=== PATIENT | female | born 1960 | race Asian ===

== ENCOUNTER 2021-05-12 17:59 | Inpatient (IN) | payer MEDICAID, OTHER ==
[~2021-05-12] VITALS: Ht 162.6 cm; Wt 94.8 kg
[2021-05-12] MEDS ORDERED: SODIUM CHLORIDE 0.9% 1,000 ML IV ONE (19:15)
[2021-05-12] MEDS ORDERED: VANCOMYCIN 1 G PREMIX 200 ML IV ONE (20:30)
[2021-05-12] MEDS ORDERED: PIPERACILLIN/TAZ 3.375G PREMIX 50 ML IV ONE (20:30)
[2021-05-12 22:02] LABS: BASOPHILS % 0.2 % (0.0-2.0); HEMATOCRIT. 26.8 % (36.0-48.0); HEMOGLOBIN. 8.9 g/dL (12.0-16.0); LYMPHOCYTES % 15.9 % (20.0-50.0); MEAN CORPUSCULAR HEMOGLOBIN 35.8 pg (28.0-32.0); MEAN CORPUSCULAR VOLUME 107.8 fL (81.0-99.0); MEAN PLATELET VOLUME 10.1 fl (7.4-10.4); NEUTROPHILS % 74.9 % (40.0-76.0); PLATELET 97 x1000/uL (130-400); RED BLOOD CELL COUNT 2.49 mill/uL (4.2-5.4); RED CELL DISTRIBUTION WIDTH 21.9 % (11.6-14.6)
[2021-05-12 23:13] LABS: CHLORIDE 101 mEq/L (98-107)
[2021-05-13] MEDS ORDERED: SODIUM CHLORIDE 0.9% 500 ML IV ONE (00:15)
[2021-05-13] MEDS ORDERED: SODIUM BICARBONATE 8.4% 1 MEQ/ML 50ML SYR IV ONE (00:15)
[2021-05-13] MEDS ORDERED: SODIUM BICARBONATE 8.4% 1 MEQ/ML 50ML SYR IV NR (01:45)
[2021-05-13] MEDS ORDERED: SODIUM POLYSTYRENE SULFONATE 15 G/60 ML BOT PO NR ×2 (04:15→21:00)
[2021-05-13 06:19] LABS: HEMATOCRIT. 23.5 % (36.0-48.0); HEMOGLOBIN. 7.8 g/dL (12.0-16.0); MEAN CORPUSCULAR HEMOGLOBIN 34.9 pg (28.0-32.0); MEAN CORPUSCULAR VOLUME 104.8 fL (81.0-99.0); MEAN PLATELET VOLUME 9.2 fl (7.4-10.4); PLATELET 57 x1000/uL (130-400); RED BLOOD CELL COUNT 2.25 mill/uL (4.2-5.4); RED CELL DISTRIBUTION WIDTH 19.4 % (11.6-14.6)
[2021-05-13 07:07] LABS: CHLORIDE 101 mEq/L (98-107)
[2021-05-13 07:22] LABS: PLATELET ESTIMATE DECREASED
[2021-05-13] MEDS: SODIUM CHLORIDE 0.9% 1,000 ML IV SCH ×2 (11:00→20:40)
[2021-05-13] MEDS: MIDODRINE HCL 5MG TABLET PO SCH ×2 (11:00→16:06)
[2021-05-13 11:18] LABS: BG BASE EXCESS -6.7 mmol/L (-2.0-2.0); BG CARBOXYHEMOGLOBIN 0.1 % (0.5-1.5); BG DEOXYHEMOGLOBIN 6.2 % (0.0-5.0); BG HCO3 ACT 18.5 mmol/L (22.0-26.0); BG METHEMOGLOBIN 0.3 % (0.0-1.5); BG OXYGEN SATURATION 93.8 % (92.0-98.5); BG OXYHEMOGLOBIN 93.4 % (94.0-97.0); BG PCO2 35.3 mmHg (35.0-45.0); BG PH 7.337 (7.350-7.450); BG PO2 80.3 mmHg (75.0-100.0); BG SAMPLE SITE RIGHT RADIAL; BG TOTAL HEMOGLOBIN 8.5 g/dL (12.0-18.0); BG VENT MODE NASAL CANNULA
[2021-05-13] MEDS ORDERED: ACETAMINOPHEN 325MG TABLET PO PRN (12:00)
[2021-05-13] MEDS ORDERED: MORPHINE SULFATE 2 MG/ML CPJ (NOT FOR IM USE) IV PRN (12:00)
[2021-05-13] MEDS ORDERED: DEXTROSE 50% WATER 50ML SYRINGE IV PRN (12:00)
[2021-05-13] MEDS ORDERED: LORAZEPAM 2MG/ML CPJ IV PRN (12:00)
[2021-05-13] MEDS ORDERED: ACETAMINOPHEN 650MG SUPP PR PRN (12:00)
[2021-05-13] MEDS: BLOOD SUGAR DIAGNOSTIC STRIP TEST SCH ×3 (13:00→21:16)
[2021-05-13] MEDS: INSULIN LISPRO 100 UNITS/ML SUBCUT SCH ×3 (13:20→21:21)
[2021-05-13 13:30] VITALS: BP 111/72
[2021-05-13 13:36] LABS: TOTAL IRON BINDING CAPACITY 174 ug/dL (250-450)
[2021-05-13 13:39] LABS: CREATINE KINASE 22 IU/L (26-192)
[2021-05-13] MEDS ORDERED: PIPERACILLIN/TAZOBACTAM 3.375 G in DEXTROSE 5% WATER 50 ML IV SCH (14:00)
[2021-05-13] MEDS ORDERED: METO-396 MT (15:27)
[2021-05-13] MEDS ORDERED: FURO20TA4 PO (15:27)
[2021-05-13] MEDS ORDERED: LEVO250T58 PO (15:27)
[2021-05-13] MEDS ORDERED: PANT40TA51 PO (15:27)
[2021-05-13] MEDS ORDERED: CLIN-116 PO (15:27)
[2021-05-13] MEDS ORDERED: DOCU50LI25 PO (15:27)
[2021-05-13 16:00] VITALS: BP 132/67
[2021-05-13 17:21] LABS: VITAMIN B12 SERUM 404 pg/mL (211-911)
[2021-05-13] MEDS ORDERED: DILT120T2 PO (17:37)
[2021-05-13] MEDS ORDERED: ATOR10TA69 PO (17:37)
[2021-05-13] MEDS ORDERED: ACYC200C31 PO (17:37)
[2021-05-13] MEDS ORDERED: TRAM50TA3 MT (17:37)
[2021-05-13] MEDS ORDERED: GABA-532 PO (17:37)
[2021-05-13] MEDS ORDERED: ASPI-1497 PO (17:37)
[2021-05-13] MEDS ORDERED: LENA25CA PO (17:37)
[2021-05-13] MEDS ORDERED: ONDA4TAB11 PO (17:37)
[2021-05-13] MEDS ORDERED: CHOL400D7 PO (17:37)
[2021-05-13] MEDS ORDERED: DEXA4TAB PO (17:37)
[2021-05-13] MEDS ORDERED: OMEP40CA20 MT (17:37)
[2021-05-13 18:06] LABS: HEPATITIS B SURFACE ANTIGEN NEGATIVE
[2021-05-13] MEDS: IPRATROPIUM/ALBUTEROL 0.5-3(2.5)MG/3ML NEB HHN SCH ×2 (18:12→21:28)
[2021-05-13] MEDS ORDERED: FUROSEMIDE 100MG/10ML VIAL IVP NR (19:45)
[2021-05-13 20:00] VITALS: BP 104/51
[2021-05-13] MEDS ORDERED: DEXTROSE 50% WATER 50ML SYRINGE IV NR (20:00)
[2021-05-13] MEDS: FAMOTIDINE 20MG TABLET PO SCH (20:36)
[2021-05-13] MEDS ORDERED: INSULIN REGULAR (HUMULIN R) UD 100 UNITS/ML SYR IV NR (21:00)
[2021-05-13] MEDS ORDERED: EPOETIN ALFA-EPBX 10,000 UNIT/ML VIAL SUBCUT NR (21:00)
[2021-05-13 21:21] LABS: INR 1.7; PARTIAL THROMBOPLASTIN TIME 40.2 sec (23.4-31.0); PROTHROMBIN TIME 17.2 sec (9.6-11.0)
[2021-05-14] VITALS: BP 123/58
[2021-05-14] MEDS: PIPERACILLIN/TAZOBACTAM 3.375 G in DEXTROSE 5% WATER 50 ML IV SCH ×3 (00:13→21:20)
[2021-05-14] MEDS: IPRATROPIUM/ALBUTEROL 0.5-3(2.5)MG/3ML NEB HHN SCH ×4 (02:08→21:47)
[2021-05-14 04:00] VITALS: BP 105/54
[2021-05-14] MEDS: SODIUM CHLORIDE 0.9% 1,000 ML IV SCH (06:10)
[2021-05-14] MEDS: BLOOD SUGAR DIAGNOSTIC STRIP TEST SCH ×4 (06:56→21:34)
[2021-05-14 06:57] LABS: HEMATOCRIT. 23.2 % (36.0-48.0); HEMOGLOBIN. 7.6 g/dL (12.0-16.0); MEAN CORPUSCULAR HEMOGLOBIN 35.6 pg (28.0-32.0); MEAN CORPUSCULAR VOLUME 108.7 fL (81.0-99.0); MEAN PLATELET VOLUME 8.8 fl (7.4-10.4); PLATELET 56 x1000/uL (130-400); RED BLOOD CELL COUNT 2.13 mill/uL (4.2-5.4); RED CELL DISTRIBUTION WIDTH 20.3 % (11.6-14.6)
[2021-05-14 07:05] LABS: CHLORIDE 102 mEq/L (98-107)
[2021-05-14 07:07] LABS: INR 1.7; PARTIAL THROMBOPLASTIN TIME 45.2 sec (23.4-31.0); PROTHROMBIN TIME 17.2 sec (9.6-11.0)
[2021-05-14 07:32] LABS: PHOSPHORUS 8.5 mg/dL (2.5-4.9)
[2021-05-14 08:00] VITALS: BP 100/58
[2021-05-14] MEDS: INSULIN LISPRO 100 UNITS/ML SUBCUT SCH ×4 (09:00→21:59)
[2021-05-14] MEDS: MIDODRINE HCL 5MG TABLET PO SCH ×2 (09:06→17:57)
[2021-05-14 12:16] VITALS: BP 101/52
[2021-05-14 13:30] LABS: NUCLEATED RED BLOOD CELLS 2 /100 WBC
[2021-05-14 13:31] LABS: PLATELET ESTIMATE DECREASED
[2021-05-14] MEDS ORDERED: SODIUM POLYSTYRENE SULFONATE 15 G/60 ML BOT PO NR (15:00)
[2021-05-14] MEDS: CITRIC ACID/SODIUM CITRATE SOLN 15ML UDC PO SCH ×2 (15:11→17:56)
[2021-05-14 16:03] VITALS: BP 100/34
[2021-05-14] MEDS: CALCIUM ACETATE 667MG CAPSULE PO SCH (17:56)
[2021-05-14 18:39] LABS: BG BASE EXCESS -8.2 mmol/L (-2.0-2.0); BG CARBOXYHEMOGLOBIN 0.3 % (0.5-1.5); BG DEOXYHEMOGLOBIN 8.3 % (0.0-5.0); BG FRACTION INSPIRED OXYGEN 21; BG HCO3 ACT 17.1 mmol/L (22.0-26.0); BG METHEMOGLOBIN 0.2 % (0.0-1.5); BG OXYGEN SATURATION 91.7 % (92.0-98.5); BG OXYHEMOGLOBIN 91.2 % (94.0-97.0); BG PH 7.319 (7.350-7.450); BG PO2 71.8 mmHg (75.0-100.0); BG SAMPLE SITE RIGHT RADIAL; BG TOTAL HEMOGLOBIN 8.6 g/dL (12.0-18.0); BG VENT MODE ROOM AIR
[2021-05-14 20:00] VITALS: BP 102/64
[2021-05-14] MEDS: FAMOTIDINE 20MG TABLET PO SCH (21:19)
[2021-05-14] MEDS ORDERED: NALOXONE HCL 0.4MG/ML VIAL IV PRN (23:00)
[2021-05-15] VITALS: BP 118/52
[2021-05-15] MEDS ORDERED: SODIUM BICARBONATE 8.4% 1 MEQ/ML 50ML SYR IV NR (00:15)
[2021-05-15 04:00] VITALS: BP 113/32
[2021-05-15] MEDS: BLOOD SUGAR DIAGNOSTIC STRIP TEST SCH ×4 (07:20→21:15)
[2021-05-15 07:36] LABS: HEMATOCRIT. 22.6 % (36.0-48.0); HEMOGLOBIN. 7.5 g/dL (12.0-16.0); MEAN CORPUSCULAR HEMOGLOBIN 35.8 pg (28.0-32.0); MEAN CORPUSCULAR VOLUME 107.6 fL (81.0-99.0); MEAN PLATELET VOLUME 9.5 fl (7.4-10.4); PLATELET 56 x1000/uL (130-400); RED CELL DISTRIBUTION WIDTH 19.5 % (11.6-14.6)
[2021-05-15 07:46] VITALS: BP 103/45
[2021-05-15] MEDS: INSULIN LISPRO 100 UNITS/ML SUBCUT SCH ×4 (07:50→21:41)
[2021-05-15 08:23] LABS: PHOSPHORUS 8.5 mg/dL (2.5-4.9)
[2021-05-15] MEDS: CALCIUM ACETATE 667MG CAPSULE PO SCH ×3 (08:32→16:51)
[2021-05-15] MEDS: CITRIC ACID/SODIUM CITRATE SOLN 15ML UDC PO SCH ×3 (08:32→16:49)
[2021-05-15] MEDS: MIDODRINE HCL 5MG TABLET PO SCH ×3 (08:32→21:30)
[2021-05-15] MEDS: PIPERACILLIN/TAZOBACTAM 3.375 G in DEXTROSE 5% WATER 50 ML IV SCH ×2 (08:32→21:36)
[2021-05-15] MEDS: IPRATROPIUM/ALBUTEROL 0.5-3(2.5)MG/3ML NEB HHN SCH ×3 (09:31→21:51)
[2021-05-15 12:15] VITALS: BP 110/50
[2021-05-15] MEDS ORDERED: DILTIAZEM HCL 5MG/ML 5ML VIAL IV NR ×2 (16:27→17:15)
[2021-05-15 16:30] VITALS: BP 119/80
[2021-05-15] MEDS ORDERED: DIGOXIN 500MCG/2ML AMP IV NR (19:30)
[2021-05-15 20:00] VITALS: BP 96/50
[2021-05-15] MEDS: FAMOTIDINE 20MG TABLET PO SCH (21:33)
[2021-05-15] MEDS: DILTIAZEM HCL 30MG TABLET PO SCH (21:41)
[2021-05-15 23:38] LABS: PLATELET ESTIMATE DECREASED
[2021-05-16] VITALS: BP 117/47
[2021-05-16] MEDS: IPRATROPIUM/ALBUTEROL 0.5-3(2.5)MG/3ML NEB HHN SCH ×4 (01:05→21:59)
[2021-05-16 04:00] VITALS: BP 127/52
[2021-05-16] MEDS: DILTIAZEM HCL 30MG TABLET PO SCH (06:18)
[2021-05-16] MEDS: BLOOD SUGAR DIAGNOSTIC STRIP TEST SCH ×4 (06:21→21:00)
[2021-05-16 07:30] LABS: HEMOGLOBIN. 7.5 g/dL (12.0-16.0); MEAN CORPUSCULAR VOLUME 107.5 fL (81.0-99.0); MEAN PLATELET VOLUME 9.2 fl (7.4-10.4); PLATELET 54 x1000/uL (130-400); RED BLOOD CELL COUNT 2.14 mill/uL (4.2-5.4)
[2021-05-16] MEDS: INSULIN LISPRO 100 UNITS/ML SUBCUT SCH ×4 (07:50→23:31)
[2021-05-16 07:55] LABS: PHOSPHORUS 6.2 mg/dL (2.5-4.9)
[2021-05-16 08:00] VITALS: BP 103/64
[2021-05-16 08:00] LABS: CREATINE KINASE MB FRACTION 1.7 ng/mL (0.5-3.6)
[2021-05-16] MEDS: CALCIUM ACETATE 667MG CAPSULE PO SCH ×3 (08:53→18:09)
[2021-05-16] MEDS: CITRIC ACID/SODIUM CITRATE SOLN 15ML UDC PO SCH ×2 (08:53→13:32)
[2021-05-16] MEDS: MIDODRINE HCL 5MG TABLET PO SCH ×3 (08:56→18:08)
[2021-05-16] MEDS: PIPERACILLIN/TAZOBACTAM 3.375 G in DEXTROSE 5% WATER 50 ML IV SCH ×2 (09:42→23:25)
[2021-05-16 12:00] VITALS: BP 145/58
[2021-05-16] MEDS: DILTIAZEM HCL 60MG TABLET PO SCH ×2 (13:32→22:00)
[2021-05-16] MEDS ORDERED: SODIUM BICARBONATE 4% (2.4MEQ) 5ML VIAL IV ONE (13:45)
[2021-05-16] MEDS ORDERED: LIDOCAINE HCL 1% 20ML VIAL (Pyxis) INJ ONE (13:45)
[2021-05-16 16:00] VITALS: BP 106/52
[2021-05-16 17:17] LABS: NUCLEATED RED BLOOD CELLS 3 /100 WBC
[2021-05-16 17:18] LABS: PLATELET ESTIMATE DECREASED
[2021-05-16 20:00] VITALS: BP 98/53
[2021-05-16 21:31] LABS: INR 1.7; PROTHROMBIN TIME 17.5 sec (9.6-11.0)
[2021-05-16] MEDS: FAMOTIDINE 20MG TABLET PO SCH (23:27)
[2021-05-16] MEDS: EPOETIN ALFA-EPBX 10,000 UNIT/ML VIAL SUBCUT SCH (23:28)
[2021-05-17] VITALS (7 sets, daily range): BP systolic 100–150; BP diastolic 59–113
[2021-05-17] MEDS: IPRATROPIUM/ALBUTEROL 0.5-3(2.5)MG/3ML NEB HHN SCH (01:41)
[2021-05-17] MEDS: DILTIAZEM HCL 60MG TABLET PO SCH (06:03)
[2021-05-17] MEDS: BLOOD SUGAR DIAGNOSTIC STRIP TEST SCH ×4 (07:20→21:00)
[2021-05-17 08:09] LABS: HEMATOCRIT. 21.9 % (36.0-48.0); HEMOGLOBIN. 7.4 g/dL (12.0-16.0); MEAN CORPUSCULAR HEMOGLOBIN 36.1 pg (28.0-32.0); MEAN CORPUSCULAR VOLUME 107.7 fL (81.0-99.0); MEAN PLATELET VOLUME 9.3 fl (7.4-10.4); PLATELET 56 x1000/uL (130-400); RED BLOOD CELL COUNT 2.04 mill/uL (4.2-5.4); RED CELL DISTRIBUTION WIDTH 19.6 % (11.6-14.6)
[2021-05-17] MEDS: MIDODRINE HCL 5MG TABLET PO SCH ×3 (09:00→18:18)
[2021-05-17 09:09] LABS: IMMUNOGLOBULIN A 5019 mg/dL (87-352); IMMUNOGLOBULIN G 310 mg/dL (586-1602); IMMUNOGLOBULIN M <5 mg/dL (26-217); KAPPA/LAMBDA RATIO 4882.68 (0.26-1.65)
[2021-05-17] MEDS: INSULIN LISPRO 100 UNITS/ML SUBCUT SCH ×4 (09:21→23:07)
[2021-05-17] MEDS: PIPERACILLIN/TAZOBACTAM 3.375 G in DEXTROSE 5% WATER 50 ML IV SCH ×2 (09:25→23:06)
[2021-05-17] MEDS: CALCIUM ACETATE 667MG CAPSULE PO SCH ×3 (09:25→18:19)
[2021-05-17] MEDS: DILTIAZEM HCL 90MG TABLET PO SCH ×2 (11:19→18:19)
[2021-05-17] MEDS: NEBIVOLOL HCL 5 MG TABLET PO SCH (13:00)
[2021-05-17 16:47] LABS: BG BASE EXCESS 0.9 mmol/L (-2.0-2.0); BG CARBOXYHEMOGLOBIN 0.5 % (0.5-1.5); BG DEOXYHEMOGLOBIN 10.7 % (0.0-5.0); BG HCO3 ACT 25.3 mmol/L (22.0-26.0); BG OXYGEN SATURATION 89.2 % (92.0-98.5); BG OXYHEMOGLOBIN 88.8 % (94.0-97.0); BG PCO2 39.3 mmHg (35.0-45.0); BG PH 7.427 (7.350-7.450); BG PO2 61.7 mmHg (75.0-100.0); BG SAMPLE SITE RIGHT RADIAL; BG TOTAL HEMOGLOBIN 9.3 g/dL (12.0-18.0); BG VENT MODE ROOM AIR
[2021-05-17 17:42] LABS: NUCLEATED RED BLOOD CELLS 3 /100 WBC; PLATELET ESTIMATE DECREASED
[2021-05-17] MEDS: FAMOTIDINE 20MG TABLET PO SCH (23:05)
[2021-05-18] VITALS (8 sets, daily range): BP systolic 51–118; BP diastolic 18–75
[2021-05-18] MEDS: DILTIAZEM HCL 90MG TABLET PO SCH ×3 (06:00→18:35)
[2021-05-18] MEDS: BLOOD SUGAR DIAGNOSTIC STRIP TEST SCH ×4 (07:21→21:00)
[2021-05-18] MEDS: MIDODRINE HCL 5MG TABLET PO SCH ×3 (08:40→23:46)
[2021-05-18] MEDS: CALCIUM ACETATE 667MG CAPSULE PO SCH ×3 (08:41→18:34)
[2021-05-18] MEDS: FUROSEMIDE 40MG/4ML VIAL IVP SCH (08:41)
[2021-05-18] MEDS: INSULIN LISPRO 100 UNITS/ML SUBCUT SCH ×4 (08:43→23:51)
[2021-05-18] MEDS: NEBIVOLOL HCL 5 MG TABLET PO SCH ×2 (08:47→21:00)
[2021-05-18] MEDS: IPRATROPIUM/ALBUTEROL 0.5-3(2.5)MG/3ML NEB HHN SCH ×3 (09:37→20:44)
[2021-05-18 11:55] LABS: BASOPHILS % 0.2 % (0.0-2.0); EOSINOPHILS % 0.5 % (0.0-5.0); HEMATOCRIT. 22.5 % (36.0-48.0); HEMOGLOBIN. 7.2 g/dL (12.0-16.0); LYMPHOCYTES % 13.8 % (20.0-50.0); MEAN CORPUSCULAR HEMOGLOBIN 35.7 pg (28.0-32.0); MEAN CORPUSCULAR VOLUME 111.5 fL (81.0-99.0); MEAN PLATELET VOLUME 8.9 fl (7.4-10.4); MONOCYTES % 11.8 % (2.0-8.0); NEUTROPHILS % 73.7 % (40.0-76.0); PLATELET 61 x1000/uL (130-400); RED BLOOD CELL COUNT 2.02 mill/uL (4.2-5.4); RED CELL DISTRIBUTION WIDTH 20.9 % (11.6-14.6)
[2021-05-18 12:04] LABS: INR 1.6; PROTHROMBIN TIME 16.6 sec (9.6-11.0)
[2021-05-18] MEDS ORDERED: DIGOXIN 500MCG/2ML AMP IV SCH ×2 (13:10→19:00)
[2021-05-18] MEDS ORDERED: ALBUMIN HUMAN 25GM/100ML (25%) IV NR (15:00)
[2021-05-18 15:56] LABS: BASOPHILS % 0.3 % (0.0-2.0); EOSINOPHILS % 0.4 % (0.0-5.0); HEMATOCRIT. 23.3 % (36.0-48.0); HEMOGLOBIN. 7.2 g/dL (12.0-16.0); LYMPHOCYTES % 13.8 % (20.0-50.0); MEAN CORPUSCULAR HEMOGLOBIN 35.2 pg (28.0-32.0); MEAN CORPUSCULAR VOLUME 113.1 fL (81.0-99.0); MEAN PLATELET VOLUME 9.7 fl (7.4-10.4); MONOCYTES % 11.1 % (2.0-8.0); NEUTROPHILS % 74.4 % (40.0-76.0); PLATELET 62 x1000/uL (130-400); RED BLOOD CELL COUNT 2.06 mill/uL (4.2-5.4); RED CELL DISTRIBUTION WIDTH 22.6 % (11.6-14.6)
[2021-05-18] MEDS: PIPERACILLIN/TAZOBACTAM 3.375 G in DEXTROSE 5% WATER 50 ML IV SCH (21:58)
[2021-05-18] MEDS: FAMOTIDINE 20MG TABLET PO SCH (23:45)
[2021-05-18] MEDS: EPOETIN ALFA-EPBX 10,000 UNIT/ML VIAL SUBCUT SCH (23:49)
[2021-05-19] VITALS (21 sets, daily range): BP systolic 98–139; BP diastolic 26–66
[2021-05-19] MEDS: DILTIAZEM HCL 90MG TABLET PO SCH ×3 (00:10→12:00)
[2021-05-19] MEDS: IPRATROPIUM/ALBUTEROL 0.5-3(2.5)MG/3ML NEB HHN SCH ×4 (02:30→20:41)
[2021-05-19 06:10] LABS: BASOPHILS % 0.2 % (0.0-2.0); EOSINOPHILS % 0.1 % (0.0-5.0); HEMOGLOBIN. 9.8 g/dL (12.0-16.0); LYMPHOCYTES % 13.8 % (20.0-50.0); MEAN CORPUSCULAR HEMOGLOBIN 35.4 pg (28.0-32.0); MEAN CORPUSCULAR VOLUME 107.9 fL (81.0-99.0); MEAN PLATELET VOLUME 9.4 fl (7.4-10.4); MONOCYTES % 11.5 % (2.0-8.0); NEUTROPHILS % 74.4 % (40.0-76.0); PLATELET 67 x1000/uL (130-400); RED BLOOD CELL COUNT 2.78 mill/uL (4.2-5.4); RED CELL DISTRIBUTION WIDTH 23.1 % (11.6-14.6)
[2021-05-19 06:51] LABS: PHOSPHORUS 5.3 mg/dL (2.5-4.9)
[2021-05-19] MEDS: MIDODRINE HCL 5MG TABLET PO SCH ×3 (06:56→16:44)
[2021-05-19] MEDS: BLOOD SUGAR DIAGNOSTIC STRIP TEST SCH ×3 (07:20→17:20)
[2021-05-19] MEDS: INSULIN LISPRO 100 UNITS/ML SUBCUT SCH ×3 (07:50→17:50)
[2021-05-19] MEDS: CALCIUM ACETATE 667MG CAPSULE PO SCH ×3 (07:50→17:50)
[2021-05-19] MEDS: NEBIVOLOL HCL 5 MG TABLET PO SCH (08:57)
[2021-05-19] MEDS: FUROSEMIDE 40MG/4ML VIAL IVP SCH (08:57)
[2021-05-19] MEDS ORDERED: LIDOCAINE HCL 1% 20ML VIAL (Pyxis) INJ ONE (09:32)
[2021-05-19] MEDS ORDERED: LACTULOSE 20G/30ML UDC PO SCH (11:00)
[2021-05-19] MEDS: DILTIAZEM HCL 60MG TABLET PO SCH ×2 (12:47→18:00)
[2021-05-19] MEDS: PIPERACILLIN/TAZOBACTAM 3.375 G in DEXTROSE 5% WATER 50 ML IV SCH (12:48)
[2021-05-19] MEDS ORDERED: CALC667T2 PO (13:04)
[2021-05-19] MEDS ORDERED: NEBI2.5T2 MT (13:04)
[2021-05-19] MEDS ORDERED: DILT60TA35 MT (13:04)
== END 2021-05-19 22:15 | disposition home health service (06) | DRG 720 ==
LOC: ER 17:59 → 6WST 05-13 03:18 → SUPCPDRO 05-13 10:12 → ENRESERV 05-13 12:50
PROVIDERS: ADMIT Internal Medicine; ATTEND Internal Medicine
PROC: 02HV33Z Insertion of Infusion Device into Superior Vena Cava, Percutaneous Approach (ICD-10-PCS; principal; 2021-05-15)
PROC: B548ZZA Ultrasonography of Superior Vena Cava, Guidance (ICD-10-PCS; 2021-05-15)
PROC: 5A1D70Z Performance of Urinary Filtration, Intermittent, Less than 6 Hours Per Day (ICD-10-PCS; 2021-05-15)
PROC: 0W9G3ZZ Drainage of Peritoneal Cavity, Percutaneous Approach (ICD-10-PCS; 2021-05-16)
PROC: 5A1D70Z Performance of Urinary Filtration, Intermittent, Less than 6 Hours Per Day (ICD-10-PCS; 2021-05-17)
PROC: 02PYX3Z Removal of Infusion Device from Great Vessel, External Approach (ICD-10-PCS; 2021-05-19)
PROC: 0JH63XZ Insertion of Tunneled Vascular Access Device into Chest Subcutaneous Tissue and Fascia, Percutaneous Approach (ICD-10-PCS; 2021-05-19)
PROC: 02HV33Z Insertion of Infusion Device into Superior Vena Cava, Percutaneous Approach (ICD-10-PCS; 2021-05-19)
PROC: B548ZZA Ultrasonography of Superior Vena Cava, Guidance (ICD-10-PCS; 2021-05-19)
PROC: B5181ZA Fluoroscopy of Superior Vena Cava using Low Osmolar Contrast, Guidance (ICD-10-PCS; 2021-05-19)
PROC: 30233N1 Transfusion of Nonautologous Red Blood Cells into Peripheral Vein, Percutaneous Approach (ICD-10-PCS; 2021-05-19)
PROC: 5A1D70Z Performance of Urinary Filtration, Intermittent, Less than 6 Hours Per Day (ICD-10-PCS; 2021-05-19)
DX: A41.9 Sepsis, unspecified organism (principal); R65.21 Severe sepsis with septic shock; I50.33 Acute on chronic diastolic (congestive) heart failure; G93.40 Encephalopathy, unspecified; E43 Unspecified severe protein-calorie malnutrition; J96.10 Chronic respiratory failure, unspecified whether with hypoxia or hypercapnia; D69.6 Thrombocytopenia, unspecified; I13.0 Hypertensive heart and chronic kidney disease with heart failure and stage 1 through stage 4 chronic kidney disease, or unspecified chronic kidney disease; J18.9 Pneumonia, unspecified organism; N17.9 Acute kidney failure, unspecified; E87.1 Hypo-osmolality and hyponatremia; I31.3 Pericardial effusion (noninflammatory); C90.00 Multiple myeloma not having achieved remission; D64.9 Anemia, unspecified; E78.5 Hyperlipidemia, unspecified; E87.5 Hyperkalemia; I07.1 Rheumatic tricuspid insufficiency; I48.0 Paroxysmal atrial fibrillation; K74.60 Unspecified cirrhosis of liver; N25.81 Secondary hyperparathyroidism of renal origin; J44.0 Chronic obstructive pulmonary disease with (acute) lower respiratory infection; K80.20 Calculus of gallbladder without cholecystitis without obstruction; N18.30 Chronic kidney disease, stage 3 unspecified; R18.8 Other ascites; Z79.899 Other long term (current) drug therapy; Z82.49 Family history of ischemic heart disease and other diseases of the circulatory system; Z83.3 Family history of diabetes mellitus; Z85.6 Personal history of leukemia; Z90.710 Acquired absence of both cervix and uterus; Z99.81 Dependence on supplemental oxygen; Z79.2 Long term (current) use of antibiotics; Z79.82 Long term (current) use of aspirin; Z68.35 Body mass index [BMI] 35.0-35.9, adult; Z20.822 Contact with and (suspected) exposure to COVID-19
CPT/HCPCS: 36415; 36556; 36558; 36589; 36600; 49083; 70551; 71045; 71250; 74176; 76604; 76937; 77001; 80048; 80053; 80162; 82040; 82140; 82375; 82533; 82550; 82553; 82607; 82784; 82805; 82962; 83036; 83540; 83550; 83605; 83615; 83735; 83880; 83883; 84100; 84145; 84443; 84478; 84484; 84550; 85025; 85044; 86334; 86705; 86706; 86709; 86803; 86850; 86900; 86920; 87340; 87426; 93005; 93306; 93970; 94640; 97161; 99291; C1750; C1752; C1769; J0885; J1160; J1642; J1815; J1940; J2060; J2543; J3370; J3490; J7030; J7040; J7060; P9016; P9047; U0003; U0005; A4315

== ENCOUNTER 2021-05-23 09:19 | Inpatient (IN) | payer OTHER ==
[~2021-05-23] VITALS: Ht 160 cm; Wt 80.7 kg
[~2021-05-23 09:19] MED LIST: ACYC200C31 PO; ATOR10TA69 PO; CALC667T2 PO; CHOL400D7 PO; DEXA4TAB PO; DILT60TA35 MT; DOCU50LI25 PO; FURO20TA4 PO; GABA-532 PO; LENA25CA PO; NEBI2.5T2 MT; OMEP40CA20 MT; ONDA4TAB11 PO; TRAM50TA3 MT
[2021-05-23] MEDS ORDERED: VANCOMYCIN 1 G PREMIX 200 ML IV ONE (09:30)
[2021-05-23] MEDS ORDERED: PIPERACILLIN/TAZ 3.375G PREMIX 50 ML IV ONE (09:30)
[2021-05-23 09:52] LABS: BASOPHILS % 0.3 % (0.0-2.0); EOSINOPHILS % 0.1 % (0.0-5.0); HEMATOCRIT. 29.2 % (36.0-48.0); HEMOGLOBIN. 9.3 g/dL (12.0-16.0); LYMPHOCYTES % 21.8 % (20.0-50.0); MEAN CORPUSCULAR HEMOGLOBIN 35.3 pg (28.0-32.0); MEAN CORPUSCULAR VOLUME 110.3 fL (81.0-99.0); MONOCYTES % 8.2 % (2.0-8.0); NEUTROPHILS % 69.6 % (40.0-76.0); PLATELET 69 x1000/uL (130-400); RED BLOOD CELL COUNT 2.65 mill/uL (4.2-5.4); RED CELL DISTRIBUTION WIDTH 24.6 % (11.6-14.6)
[2021-05-23 09:57] LABS: CHLORIDE 98 mEq/L (98-107)
[2021-05-23] MEDS ORDERED: NOREPINEPHRINE 32 MG in DEXT 5% WATER 218 ML IV PRN (11:00)
[2021-05-23] MEDS ORDERED: HYDROCODONE/ACETAMINOPHEN 5/325MG TABLET PO PRN (11:30)
[2021-05-23] MEDS ORDERED: MAGNESIUM/ALUMINUM HYDROXIDE/SIMETHICONE 30ML UDC PO PRN (11:30)
[2021-05-23] MEDS ORDERED: IPRATROPIUM/ALBUTEROL 0.5-3(2.5)MG/3ML NEB NEB PRN (11:30)
[2021-05-23] MEDS ORDERED: DOCUSATE SODIUM 100MG CAPSULE PO PRN (11:30)
[2021-05-23] MEDS ORDERED: DIPHENHYDRAMINE 50MG/ML VIAL IV PRN (11:30)
[2021-05-23] MEDS ORDERED: PIPERACILLIN/TAZOBACTAM 3.375 G in DEXTROSE 5% WATER 50 ML IV SCH (11:30)
[2021-05-23] MEDS ORDERED: ACETAMINOPHEN 650MG SUPP PR PRN (11:30)
[2021-05-23 11:36] LABS: CLARITY URINE TURBID (CLEAR); COLOR URINE DARK YELLOW (YELLOW); KETONES URINE NEGATIVE (NEGATIVE); LEUKOCYTE ESTERASE URINE 3+ (NEGATIVE); NITRITE URINE NEGATIVE (NEGATIVE); OCCULT BLOOD URINE 3+ (NEGATIVE); PH URINE 7.5 (4.5-8.0); PROTEIN URINE 4+ (NEGATIVE); SPECIFIC GRAVITY URINE 1.027 (1.005-1.030); UROBILINOGEN URINE 0.2 E.U./dL (0.2-1.0)
[2021-05-23 11:43] LABS: INR 1.8; PROTHROMBIN TIME 18.4 sec (9.6-11.0)
[2021-05-23] MEDS: DEXT 5%/0.9% NACL 1,000 ML IV SCH (12:00)
[2021-05-23 12:25] LABS: PLATELET ESTIMATE DECREASED
[2021-05-23 12:35] LABS: BG BASE EXCESS -5.8 mmol/L (-2.0-2.0); BG CARBOXYHEMOGLOBIN 0.4 % (0.5-1.5); BG DEOXYHEMOGLOBIN 1.7 % (0.0-5.0); BG FRACTION INSPIRED OXYGEN 50; BG HCO3 ACT 20.3 mmol/L (22.0-26.0); BG METHEMOGLOBIN 0.3 % (0.0-1.5); BG OXYGEN SATURATION 98.3 % (92.0-98.5); BG OXYHEMOGLOBIN 97.6 % (94.0-97.0); BG PCO2 42.3 mmHg (35.0-45.0); BG PH 7.298 (7.350-7.450); BG SAMPLE SITE RIGHT RADIAL; BG TOTAL HEMOGLOBIN 9.6 g/dL (12.0-18.0); BG VENT MODE MASK - BIPAP
[2021-05-23] MEDS ORDERED: LIDOCAINE HCL 1% 20ML VIAL (Pyxis) INJ ONE (12:46)
[2021-05-23] MEDS: NOREPINEPHRINE 32 MG in DEXT 5% WATER 218 ML IV PRN (12:50)
[2021-05-23] MEDS ORDERED: VANCOMYCIN 500 MG PREMIX 100 ML IV NR (13:00)
[2021-05-23] MEDS: PANTOPRAZOLE SODIUM 40 MG/VIAL IV SCH (14:16)
[2021-05-23 16:14] LABS: HEPATITIS B SURFACE ANTIGEN NEGATIVE
[2021-05-23] MEDS: SODIUM POLYSTYRENE SULFONATE 15 G/60 ML BOT PO NR ×2 (16:30→22:23)
[2021-05-23] MEDS: IPRATROPIUM/ALBUTEROL 0.5-3(2.5)MG/3ML NEB NEB SCH ×2 (16:40→20:36)
[2021-05-23] MEDS ORDERED: DEXTROSE 50% WATER 50ML SYRINGE IV PRN (17:30)
[2021-05-23] MEDS: INSULIN LISPRO 100 UNITS/ML SUBCUT SCH ×2 (18:20→22:46)
[2021-05-23] MEDS: BLOOD SUGAR DIAGNOSTIC STRIP TEST SCH (21:00)
[2021-05-23] MEDS: EPOETIN ALFA 10000UNITS/ML VIAL SUBCUT SCH (22:33)
[2021-05-23] MEDS: PIPERACILLIN/TAZOBACTAM 3.375 G in DEXTROSE 5% WATER 50 ML IV SCH (22:33)
[2021-05-24 00:03] LABS: CREATINE KINASE 67 IU/L (26-192)
[2021-05-24 00:04] LABS: CREATINE KINASE MB FRACTION < 1.0 ng/mL (0.5-3.6)
[2021-05-24] MEDS: IPRATROPIUM/ALBUTEROL 0.5-3(2.5)MG/3ML NEB NEB SCH ×4 (02:20→19:59)
[2021-05-24] MEDS: DEXT 5%/0.9% NACL 1,000 ML IV SCH (07:30)
[2021-05-24 08:16] LABS: BG BASE EXCESS -5.7 mmol/L (-2.0-2.0); BG CARBOXYHEMOGLOBIN 0.3 % (0.5-1.5); BG DEOXYHEMOGLOBIN 2.6 % (0.0-5.0); BG HCO3 ACT 22.1 mmol/L (22.0-26.0); BG METHEMOGLOBIN 0.3 % (0.0-1.5); BG OXYGEN SATURATION 97.4 % (92.0-98.5); BG OXYHEMOGLOBIN 96.8 % (94.0-97.0); BG PCO2 55.2 mmHg (35.0-45.0); BG PH 7.221 (7.350-7.450); BG PO2 110.4 mmHg (75.0-100.0); BG SAMPLE SITE RIGHT RADIAL; BG VENT MODE MASK - BIPAP
[2021-05-24] MEDS: INSULIN LISPRO 100 UNITS/ML SUBCUT SCH ×4 (08:52→22:14)
[2021-05-24 09:30] LABS: BASOPHILS % 0.2 % (0.0-2.0); EOSINOPHILS % 0.2 % (0.0-5.0); HEMATOCRIT. 29.6 % (36.0-48.0); HEMOGLOBIN. 9.4 g/dL (12.0-16.0); LYMPHOCYTES % 13.3 % (20.0-50.0); MEAN CORPUSCULAR HEMOGLOBIN 35.1 pg (28.0-32.0); MEAN CORPUSCULAR VOLUME 110.6 fL (81.0-99.0); MEAN PLATELET VOLUME 9.7 fl (7.4-10.4); MONOCYTES % 9.2 % (2.0-8.0); NEUTROPHILS % 77.1 % (40.0-76.0); PLATELET 64 x1000/uL (130-400); RED BLOOD CELL COUNT 2.67 mill/uL (4.2-5.4); RED CELL DISTRIBUTION WIDTH 24.7 % (11.6-14.6)
[2021-05-24] MEDS: PANTOPRAZOLE SODIUM 40 MG/VIAL IV SCH (09:31)
[2021-05-24 09:33] LABS: CHLORIDE 102 mEq/L (98-107)
[2021-05-24] MEDS: PIPERACILLIN/TAZOBACTAM 3.375 G in DEXTROSE 5% WATER 50 ML IV SCH ×2 (09:52→22:14)
[2021-05-24 09:58] LABS: PHOSPHORUS 8.4 mg/dL (2.5-4.9)
[2021-05-24] MEDS ORDERED: SODIUM BICARBONATE 8.4% 1 MEQ/ML 50ML SYR IV SCH (10:30)
[2021-05-24] MEDS: BLOOD SUGAR DIAGNOSTIC STRIP TEST SCH ×3 (11:39→22:14)
[2021-05-24 19:33] LABS: BG BASE EXCESS -5.1 mmol/L (-2.0-2.0); BG CARBOXYHEMOGLOBIN 0.3 % (0.5-1.5); BG DEOXYHEMOGLOBIN 4.8 % (0.0-5.0); BG FRACTION INSPIRED OXYGEN 40; BG HCO3 ACT 22.1 mmol/L (22.0-26.0); BG OXYGEN SATURATION 95.2 % (92.0-98.5); BG OXYHEMOGLOBIN 94.9 % (94.0-97.0); BG PH 7.254 (7.350-7.450); BG PO2 90.3 mmHg (75.0-100.0); BG SAMPLE SITE RIGHT RADIAL; BG TOTAL HEMOGLOBIN 10.2 g/dL (12.0-18.0); BG TOTAL RESPIRATORY RATE 27 b/min; BG VENT MODE MASK - BIPAP
[2021-05-24] MEDS ORDERED: NALOXONE HCL 0.4MG/ML VIAL IV PRN (19:45)
[2021-05-24] MEDS: LORAZEPAM 0.5MG TABLET PO PRN (23:02)
[2021-05-25] VITALS (57 sets, daily range): BP systolic 79–126; BP diastolic 24–88
[2021-05-25] MEDS: LORAZEPAM 0.5MG TABLET PO PRN (03:31)
[2021-05-25] MEDS: INSULIN LISPRO 100 UNITS/ML SUBCUT SCH ×4 (07:08→23:00)
[2021-05-25] MEDS: BLOOD SUGAR DIAGNOSTIC STRIP TEST SCH ×4 (07:08→23:00)
[2021-05-25] MEDS: DEXT 5%/0.9% NACL 1,000 ML IV SCH (07:30)
[2021-05-25] MEDS: PANTOPRAZOLE SODIUM 40 MG/VIAL IV SCH (10:31)
[2021-05-25] MEDS ORDERED: PIPERACILLIN/TAZOBACTAM 3.375 G in DEXTROSE 5% WATER 50 ML IV SCH (11:00)
[2021-05-25 11:32] LABS: BG BASE EXCESS -5.4 mmol/L (-2.0-2.0); BG DEOXYHEMOGLOBIN 3.7 % (0.0-5.0); BG FRACTION INSPIRED OXYGEN 40; BG HCO3 ACT 18.5 mmol/L (22.0-26.0); BG METHEMOGLOBIN 0.3 % (0.0-1.5); BG OXYGEN SATURATION 96.3 % (92.0-98.5); BG PCO2 30.4 mmHg (35.0-45.0); BG PH 7.402 (7.350-7.450); BG PO2 84.9 mmHg (75.0-100.0); BG SAMPLE SITE RIGHT RADIAL; BG TOTAL HEMOGLOBIN 10.3 g/dL (12.0-18.0); BG VENT MODE VENT - AC
[2021-05-25] MEDS ORDERED: MIDAZOLAM HCL 100 MG in SODIUM CHLORIDE 0.9% 80 ML IV PRN (11:45)
[2021-05-25] MEDS: FENTANYL CITRATE/PF 1,000 MCG in SODIUM CHLORIDE 0.9% 80 ML IV PRN ×2 (12:16→23:00)
[2021-05-25 12:52] LABS: HEMATOCRIT. 31.2 % (36.0-48.0); MEAN CORPUSCULAR VOLUME 111.8 fL (81.0-99.0); MEAN PLATELET VOLUME 9.6 fl (7.4-10.4); RED BLOOD CELL COUNT 2.79 mill/uL (4.2-5.4); RED CELL DISTRIBUTION WIDTH 24.8 % (11.6-14.6)
[2021-05-25 12:59] LABS: PROTHROMBIN TIME 20.6 sec (9.6-11.0)
[2021-05-25 13:20] LABS: PLATELET 45 x1000/uL (130-400)
[2021-05-25 13:34] LABS: NUCLEATED RED BLOOD CELLS 5 /100 WBC; PLATELET ESTIMATE MARKEDLY DECREASED
[2021-05-25 13:51] LABS: PHOSPHORUS 8.8 mg/dL (2.5-4.9)
[2021-05-25] MEDS: PIPERACILLIN/TAZOBACTAM 3.375 G in DEXTROSE 5% WATER 50 ML IV SCH ×2 (15:14→21:58)
[2021-05-25] MEDS: IPRATROPIUM/ALBUTEROL 0.5-3(2.5)MG/3ML NEB NEB SCH (17:10)
[2021-05-25] MEDS ORDERED: ACETAMINOPHEN 325MG TABLET PO PRN (21:15)
[2021-05-25] MEDS: EPOETIN ALFA 10000UNITS/ML VIAL SUBCUT SCH (21:58)
[2021-05-25] MEDS: NOREPINEPHRINE 32 MG in DEXT 5% WATER 218 ML IV PRN (22:13)
[2021-05-26] VITALS (113 sets, daily range): BP systolic 57–154; BP diastolic 33–108
[2021-05-26] MEDS: IPRATROPIUM/ALBUTEROL 0.5-3(2.5)MG/3ML NEB NEB SCH ×3 (04:13→20:24)
[2021-05-26 05:52] LABS: BASOPHILS % 0.2 % (0.0-2.0); EOSINOPHILS % 0.4 % (0.0-5.0); LYMPHOCYTES % 14.1 % (20.0-50.0); MEAN CORPUSCULAR HEMOGLOBIN 35.9 pg (28.0-32.0); MEAN CORPUSCULAR VOLUME 108.2 fL (81.0-99.0); MEAN PLATELET VOLUME 9.6 fl (7.4-10.4); MONOCYTES % 6.1 % (2.0-8.0); NEUTROPHILS % 79.2 % (40.0-76.0); PLATELET 53 x1000/uL (130-400); RED BLOOD CELL COUNT 2.78 mill/uL (4.2-5.4); RED CELL DISTRIBUTION WIDTH 24.3 % (11.6-14.6)
[2021-05-26 05:56] LABS: CHLORIDE 103 mEq/L (98-107)
[2021-05-26] MEDS: BLOOD SUGAR DIAGNOSTIC STRIP TEST SCH ×4 (07:55→23:25)
[2021-05-26] MEDS: DEXT 5%/0.9% NACL 1,000 ML IV SCH (07:56)
[2021-05-26] MEDS ORDERED: FENTANYL CITRATE/PF 2,500 MCG in SODIUM CHLORIDE 0.9% 200 ML IV PRN (08:00)
[2021-05-26] MEDS: INSULIN LISPRO 100 UNITS/ML SUBCUT SCH ×4 (08:40→23:25)
[2021-05-26 08:48] LABS: BG BASE EXCESS -3.8 mmol/L (-2.0-2.0); BG CARBOXYHEMOGLOBIN 0.3 % (0.5-1.5); BG DEOXYHEMOGLOBIN 3.1 % (0.0-5.0); BG FRACTION INSPIRED OXYGEN 50; BG HCO3 ACT 18.8 mmol/L (22.0-26.0); BG METHEMOGLOBIN 0.4 % (0.0-1.5); BG OXYGEN SATURATION 96.9 % (92.0-98.5); BG OXYHEMOGLOBIN 96.2 % (94.0-97.0); BG PCO2 26.6 mmHg (35.0-45.0); BG PH 7.467 (7.350-7.450); BG PO2 94.9 mmHg (75.0-100.0); BG SAMPLE SITE LEFT RADIAL; BG TOTAL HEMOGLOBIN 10.6 g/dL (12.0-18.0); BG TOTAL RESPIRATORY RATE 22 b/min; BG VENT MODE VENT - AC
[2021-05-26] MEDS: PANTOPRAZOLE SODIUM 40 MG/VIAL IV SCH (08:51)
[2021-05-26] MEDS: PIPERACILLIN/TAZOBACTAM 3.375 G in DEXTROSE 5% WATER 50 ML IV SCH ×2 (08:51→20:25)
[2021-05-26] MEDS ORDERED: DILTIAZEM HCL 125 MG in DEXT 5% WATER 100 ML IV PRN (18:30)
[2021-05-26] MEDS ORDERED: DIGOXIN 500MCG/2ML AMP IV NR (20:15)
[2021-05-26] MEDS: PHENYLEPHRINE 100 MG in DEXT 5% WATER 240 ML IV PRN (21:31)
[2021-05-27] VITALS (91 sets, daily range): BP systolic 81–135; BP diastolic 49–88
[2021-05-27] MEDS: IPRATROPIUM/ALBUTEROL 0.5-3(2.5)MG/3ML NEB NEB SCH ×4 (00:53→20:48)
[2021-05-27] MEDS: INSULIN LISPRO 100 UNITS/ML SUBCUT SCH ×3 (05:07→17:49)
[2021-05-27] MEDS: BLOOD SUGAR DIAGNOSTIC STRIP TEST SCH ×3 (05:07→18:00)
[2021-05-27 05:25] LABS: BASOPHILS % 0.5 % (0.0-2.0); HEMATOCRIT. 31.5 % (36.0-48.0); HEMOGLOBIN. 10.3 g/dL (12.0-16.0); LYMPHOCYTES % 11.9 % (20.0-50.0); MEAN CORPUSCULAR VOLUME 109.8 fL (81.0-99.0); MEAN PLATELET VOLUME 9.5 fl (7.4-10.4); MONOCYTES % 5.7 % (2.0-8.0); NEUTROPHILS % 80.9 % (40.0-76.0); RED BLOOD CELL COUNT 2.87 mill/uL (4.2-5.4); RED CELL DISTRIBUTION WIDTH 25.1 % (11.6-14.6)
[2021-05-27 05:48] LABS: PHOSPHORUS 5.1 mg/dL (2.5-4.9)
[2021-05-27 05:52] LABS: PLATELET 46 x1000/uL (130-400)
[2021-05-27] MEDS: PHENYLEPHRINE 100 MG in DEXT 5% WATER 240 ML IV PRN ×2 (06:46→16:40)
[2021-05-27] MEDS: PIPERACILLIN/TAZOBACTAM 3.375 G in DEXTROSE 5% WATER 50 ML IV SCH ×2 (08:16→21:12)
[2021-05-27] MEDS: PANTOPRAZOLE SODIUM 40 MG/VIAL IV SCH (08:16)
[2021-05-27] MEDS ORDERED: LACTULOSE 20G/30ML UDC PO NR (18:00)
[2021-05-27] MEDS: GUAIFENESIN 200MG/10ML SUGAR FREE UDC PO PRN (21:12)
[2021-05-27] MEDS: ACETAMINOPHEN 325MG TABLET PO PRN (21:13)
[2021-05-27] MEDS: ONDANSETRON HCL 4MG/2ML INJ IV PRN (21:13)
[2021-05-27] MEDS: EPOETIN ALFA 10000UNITS/ML VIAL SUBCUT SCH (21:14)
[2021-05-28] VITALS (85 sets, daily range): BP systolic 51–149; BP diastolic 31–109
[2021-05-28] MEDS: IPRATROPIUM/ALBUTEROL 0.5-3(2.5)MG/3ML NEB NEB SCH ×4 (00:48→20:52)
[2021-05-28] MEDS: PHENYLEPHRINE 100 MG in DEXT 5% WATER 240 ML IV PRN ×4 (03:10→21:20)
[2021-05-28 05:58] LABS: BASOPHILS % 0.5 % (0.0-2.0); EOSINOPHILS % 1.6 % (0.0-5.0); HEMATOCRIT. 31.9 % (36.0-48.0); HEMOGLOBIN. 10.7 g/dL (12.0-16.0); LYMPHOCYTES % 11.1 % (20.0-50.0); MEAN CORPUSCULAR HEMOGLOBIN 36.3 pg (28.0-32.0); MEAN CORPUSCULAR VOLUME 108.7 fL (81.0-99.0); MEAN PLATELET VOLUME 9.7 fl (7.4-10.4); MONOCYTES % 5.4 % (2.0-8.0); NEUTROPHILS % 81.4 % (40.0-76.0); RED BLOOD CELL COUNT 2.94 mill/uL (4.2-5.4); RED CELL DISTRIBUTION WIDTH 25.6 % (11.6-14.6)
[2021-05-28] MEDS: BLOOD SUGAR DIAGNOSTIC STRIP TEST SCH ×4 (06:00→17:08)
[2021-05-28] MEDS: INSULIN LISPRO 100 UNITS/ML SUBCUT SCH ×4 (06:00→17:16)
[2021-05-28 06:10] LABS: PHOSPHORUS 5.4 mg/dL (2.5-4.9)
[2021-05-28 07:09] LABS: PLATELET 43 x1000/uL (130-400)
[2021-05-28] MEDS: PANTOPRAZOLE SODIUM 40 MG/VIAL IV SCH (08:00)
[2021-05-28] MEDS: PIPERACILLIN/TAZOBACTAM 3.375 G in DEXTROSE 5% WATER 50 ML IV SCH ×2 (08:00→21:19)
[2021-05-28] MEDS: LACTULOSE 20G/30ML UDC PO SCH ×2 (13:25→21:20)
[2021-05-28] MEDS: MIDODRINE HCL 5MG TABLET PO SCH ×2 (13:25→17:50)
[2021-05-28] MEDS ORDERED: ALBUMIN HUMAN 12.5G/250ML (5%) IV NR (17:15)
[2021-05-28] MEDS ORDERED: VANCOMYCIN 500 MG PREMIX 100 ML IV NR (20:00)
[2021-05-28] MEDS: METOPROLOL TARTRATE 25MG TABLET PO SCH (21:00)
[2021-05-28] MEDS: GUAIFENESIN 200MG/10ML SUGAR FREE UDC PO PRN (21:20)
[2021-05-28] MEDS: ACETAMINOPHEN 325MG TABLET PO PRN (21:20)
[2021-05-28] MEDS: ONDANSETRON HCL 4MG/2ML INJ IV PRN (21:21)
[2021-05-29] VITALS (93 sets, daily range): BP systolic 68–128; BP diastolic 24–92
[2021-05-29] MEDS: IPRATROPIUM/ALBUTEROL 0.5-3(2.5)MG/3ML NEB NEB SCH ×4 (02:40→19:53)
[2021-05-29 05:23] LABS: BASOPHILS % 0.6 % (0.0-2.0); EOSINOPHILS % 2.3 % (0.0-5.0); HEMOGLOBIN. 10.4 g/dL (12.0-16.0); LYMPHOCYTES % 13.9 % (20.0-50.0); MEAN CORPUSCULAR HEMOGLOBIN 35.7 pg (28.0-32.0); MEAN CORPUSCULAR VOLUME 109.9 fL (81.0-99.0); MEAN PLATELET VOLUME 9.6 fl (7.4-10.4); MONOCYTES % 6.7 % (2.0-8.0); NEUTROPHILS % 76.5 % (40.0-76.0); RED BLOOD CELL COUNT 2.91 mill/uL (4.2-5.4); RED CELL DISTRIBUTION WIDTH 25.8 % (11.6-14.6)
[2021-05-29 05:48] LABS: PHOSPHORUS 5.2 mg/dL (2.5-4.9)
[2021-05-29] MEDS: INSULIN LISPRO 100 UNITS/ML SUBCUT SCH ×5 (06:00→23:51)
[2021-05-29] MEDS: BLOOD SUGAR DIAGNOSTIC STRIP TEST SCH ×4 (06:00→17:51)
[2021-05-29 06:33] LABS: PLATELET 44 x1000/uL (130-400)
[2021-05-29] MEDS: LACTULOSE 20G/30ML UDC PO SCH ×3 (07:04→21:37)
[2021-05-29] MEDS: PHENYLEPHRINE 100 MG in DEXT 5% WATER 240 ML IV PRN ×3 (07:30→23:52)
[2021-05-29] MEDS: METOPROLOL TARTRATE 25MG TABLET PO SCH ×2 (08:12→21:37)
[2021-05-29] MEDS: PANTOPRAZOLE SODIUM 40 MG/VIAL IV SCH (08:12)
[2021-05-29] MEDS: MIDODRINE HCL 5MG TABLET PO SCH ×3 (08:12→17:51)
[2021-05-29] MEDS: MORPHINE SULFATE 2 MG/ML CPJ (NOT FOR IM USE) IV PRN ×2 (10:51→15:14)
[2021-05-30] VITALS (94 sets, daily range): BP systolic 76–153; BP diastolic 40–107
[2021-05-30] MEDS: IPRATROPIUM/ALBUTEROL 0.5-3(2.5)MG/3ML NEB NEB SCH ×4 (00:11→21:35)
[2021-05-30] MEDS: MORPHINE SULFATE 2 MG/ML CPJ (NOT FOR IM USE) IV PRN ×2 (02:14→06:43)
[2021-05-30] MEDS: BLOOD SUGAR DIAGNOSTIC STRIP TEST SCH ×4 (06:07→17:17)
[2021-05-30] MEDS: INSULIN LISPRO 100 UNITS/ML SUBCUT SCH ×3 (06:10→17:17)
[2021-05-30] MEDS: LACTULOSE 20G/30ML UDC PO SCH ×3 (06:10→22:01)
[2021-05-30 06:25] LABS: BASOPHILS % 0.7 % (0.0-2.0); EOSINOPHILS % 1.6 % (0.0-5.0); HEMATOCRIT. 33.9 % (36.0-48.0); LYMPHOCYTES % 11.3 % (20.0-50.0); MEAN CORPUSCULAR HEMOGLOBIN 35.7 pg (28.0-32.0); MEAN CORPUSCULAR VOLUME 110.6 fL (81.0-99.0); MEAN PLATELET VOLUME 9.8 fl (7.4-10.4); MONOCYTES % 7.5 % (2.0-8.0); NEUTROPHILS % 78.9 % (40.0-76.0); PLATELET 54 x1000/uL (130-400); RED BLOOD CELL COUNT 3.07 mill/uL (4.2-5.4); RED CELL DISTRIBUTION WIDTH 25.4 % (11.6-14.6)
[2021-05-30 06:48] LABS: PHOSPHORUS 6.3 mg/dL (2.5-4.9)
[2021-05-30] MEDS: METOPROLOL TARTRATE 25MG TABLET PO SCH (09:02)
[2021-05-30] MEDS: MIDODRINE HCL 5MG TABLET PO SCH ×3 (09:02→16:14)
[2021-05-30] MEDS: PANTOPRAZOLE SODIUM 40 MG/VIAL IV SCH (09:02)
[2021-05-30] MEDS: PHENYLEPHRINE 100 MG in DEXT 5% WATER 240 ML IV PRN ×2 (10:57→21:01)
[2021-05-30] MEDS ORDERED: DIGOXIN 500MCG/2ML AMP IV NR (15:15)
[2021-05-30] MEDS: LEVOFLOXACIN 250MG PREMIX 50 ML IV SCH (15:55)
[2021-05-30] MEDS: METHYLPREDNISOLONE SOD SUCC 40 MG/ML VIAL IV SCH ×2 (15:55→21:17)
[2021-05-30 16:14] LABS: BG BASE EXCESS -2.8 mmol/L (-2.0-2.0); BG CARBOXYHEMOGLOBIN 0.3 % (0.5-1.5); BG DEOXYHEMOGLOBIN 5.1 % (0.0-5.0); BG FRACTION INSPIRED OXYGEN 40; BG HCO3 ACT 21.8 mmol/L (22.0-26.0); BG METHEMOGLOBIN 0.5 % (0.0-1.5); BG OXYGEN SATURATION 94.9 % (92.0-98.5); BG OXYHEMOGLOBIN 94.1 % (94.0-97.0); BG PCO2 37.3 mmHg (35.0-45.0); BG PH 7.384 (7.350-7.450); BG PO2 84.4 mmHg (75.0-100.0); BG SAMPLE SITE RIGHT RADIAL; BG TOTAL HEMOGLOBIN 12.2 g/dL (12.0-18.0); BG VENT MODE VENT - CPAP
[2021-05-30] MEDS: DILTIAZEM HCL 30MG TABLET PO SCH (17:17)
[2021-05-30] MEDS: NEBIVOLOL HCL 5 MG TABLET PO SCH (21:00)
[2021-05-30 22:03] LABS: CREATINE KINASE MB FRACTION 4.2 ng/mL (0.5-3.6)
[2021-05-31] VITALS (96 sets, daily range): BP systolic 77–147; BP diastolic 15–110
[2021-05-31] MEDS: BLOOD SUGAR DIAGNOSTIC STRIP TEST SCH ×5 (00:01→23:59)
[2021-05-31] MEDS: DILTIAZEM HCL 30MG TABLET PO SCH ×4 (00:02→17:59)
[2021-05-31] MEDS: INSULIN LISPRO 100 UNITS/ML SUBCUT SCH ×5 (00:10→23:59)
[2021-05-31] MEDS: IPRATROPIUM/ALBUTEROL 0.5-3(2.5)MG/3ML NEB NEB SCH ×4 (01:16→20:31)
[2021-05-31] MEDS: LACTULOSE 20G/30ML UDC PO SCH ×3 (06:07→21:50)
[2021-05-31 06:10] LABS: HEMATOCRIT. 33.6 % (36.0-48.0); MEAN CORPUSCULAR HEMOGLOBIN 36.3 pg (28.0-32.0); MEAN CORPUSCULAR VOLUME 110.4 fL (81.0-99.0); MEAN PLATELET VOLUME 10.5 fl (7.4-10.4); PLATELET 67 x1000/uL (130-400); RED BLOOD CELL COUNT 3.04 mill/uL (4.2-5.4); RED CELL DISTRIBUTION WIDTH 24.8 % (11.6-14.6)
[2021-05-31 06:45] LABS: PHOSPHORUS 7.1 mg/dL (2.5-4.9)
[2021-05-31 07:52] LABS: DIGOXIN 3.3 ng/mL (0.9-2.0)
[2021-05-31] MEDS: PANTOPRAZOLE SODIUM 40 MG/VIAL IV SCH (08:32)
[2021-05-31] MEDS: NEBIVOLOL HCL 5 MG TABLET PO SCH ×2 (08:32→21:00)
[2021-05-31] MEDS: METHYLPREDNISOLONE SOD SUCC 40 MG/ML VIAL IV SCH ×2 (08:32→16:11)
[2021-05-31] MEDS: MIDODRINE HCL 5MG TABLET PO SCH ×3 (08:32→16:11)
[2021-05-31] MEDS: LEVOFLOXACIN 250MG PREMIX 50 ML IV SCH (16:10)
[2021-05-31 16:30] LABS: PLATELET ESTIMATE DECREASED
[2021-06-01] VITALS (85 sets, daily range): BP systolic 85–132; BP diastolic 30–86
[2021-06-01] MEDS: IPRATROPIUM/ALBUTEROL 0.5-3(2.5)MG/3ML NEB NEB SCH ×4 (00:22→20:29)
[2021-06-01] MEDS: PHENYLEPHRINE 100 MG in DEXT 5% WATER 240 ML IV PRN (01:25)
[2021-06-01] MEDS: DILTIAZEM HCL 30MG TABLET PO SCH ×5 (06:00→23:09)
[2021-06-01 06:08] LABS: HEMATOCRIT. 30.4 % (36.0-48.0); HEMOGLOBIN. 9.8 g/dL (12.0-16.0); MEAN CORPUSCULAR HEMOGLOBIN 35.8 pg (28.0-32.0); MEAN CORPUSCULAR VOLUME 111.4 fL (81.0-99.0); MEAN PLATELET VOLUME 10.3 fl (7.4-10.4); RED BLOOD CELL COUNT 2.73 mill/uL (4.2-5.4); RED CELL DISTRIBUTION WIDTH 24.9 % (11.6-14.6)
[2021-06-01 06:28] LABS: PLATELET 47 x1000/uL (130-400)
[2021-06-01] MEDS: BLOOD SUGAR DIAGNOSTIC STRIP TEST SCH ×4 (06:33→23:14)
[2021-06-01] MEDS: LACTULOSE 20G/30ML UDC PO SCH ×3 (06:34→21:02)
[2021-06-01] MEDS: INSULIN LISPRO 100 UNITS/ML SUBCUT SCH ×4 (06:56→23:17)
[2021-06-01 07:09] LABS: DIGOXIN 3.4 ng/mL (0.9-2.0)
[2021-06-01] MEDS: PANTOPRAZOLE SODIUM 40 MG/VIAL IV SCH (08:35)
[2021-06-01] MEDS: METHYLPREDNISOLONE SOD SUCC 40 MG/ML VIAL IV SCH ×2 (08:35→16:05)
[2021-06-01] MEDS: MIDODRINE HCL 5MG TABLET PO SCH ×3 (08:35→16:04)
[2021-06-01] MEDS: NEBIVOLOL HCL 5 MG TABLET PO SCH ×2 (08:36→20:02)
[2021-06-01 09:21] LABS: BG BASE EXCESS -9.8 mmol/L (-2.0-2.0); BG CARBOXYHEMOGLOBIN 0.3 % (0.5-1.5); BG DEOXYHEMOGLOBIN 3.8 % (0.0-5.0); BG FRACTION INSPIRED OXYGEN 36; BG HCO3 ACT 15.9 mmol/L (22.0-26.0); BG METHEMOGLOBIN 0.2 % (0.0-1.5); BG OXYGEN SATURATION 96.2 % (92.0-98.5); BG OXYHEMOGLOBIN 95.7 % (94.0-97.0); BG PCO2 34.4 mmHg (35.0-45.0); BG PH 7.283 (7.350-7.450); BG PO2 95.8 mmHg (75.0-100.0); BG SAMPLE SITE RIGHT RADIAL; BG TOTAL HEMOGLOBIN 10.5 g/dL (12.0-18.0); BG VENT MODE NASAL CANNULA
[2021-06-01] MEDS: LEVOFLOXACIN 250MG PREMIX 50 ML IV SCH (16:04)
[2021-06-01 17:13] LABS: PLATELET ESTIMATE MARKEDLY DECREASED
[2021-06-01] MEDS: EPOETIN ALFA-EPBX 4,000 UNIT/ML VIAL SUBCUT SCH (20:04)
[2021-06-01 23:21] LABS: HEPATITIS B SURFACE AB < 3.1 mIU/mL
[2021-06-01 23:32] LABS: HEPATITIS B SURFACE ANTIGEN NEGATIVE
[2021-06-02] VITALS (32 sets, daily range): BP systolic 66–115; BP diastolic 25–74
[2021-06-02] MEDS: IPRATROPIUM/ALBUTEROL 0.5-3(2.5)MG/3ML NEB NEB SCH ×4 (02:38→20:31)
[2021-06-02] MEDS: DILTIAZEM HCL 30MG TABLET PO SCH ×3 (06:00→17:27)
[2021-06-02 06:01] LABS: HEMATOCRIT. 28.4 % (36.0-48.0); HEMOGLOBIN. 9.4 g/dL (12.0-16.0); MEAN CORPUSCULAR HEMOGLOBIN 36.5 pg (28.0-32.0); MEAN PLATELET VOLUME 10.6 fl (7.4-10.4); RED BLOOD CELL COUNT 2.58 mill/uL (4.2-5.4); RED CELL DISTRIBUTION WIDTH 24.4 % (11.6-14.6)
[2021-06-02] MEDS: LACTULOSE 20G/30ML UDC PO SCH ×3 (06:03→20:51)
[2021-06-02] MEDS: BLOOD SUGAR DIAGNOSTIC STRIP TEST SCH ×3 (06:04→17:27)
[2021-06-02] MEDS: INSULIN LISPRO 100 UNITS/ML SUBCUT SCH ×4 (06:33→20:54)
[2021-06-02 07:01] LABS: DIGOXIN 2.5 ng/mL (0.9-2.0)
[2021-06-02 07:31] LABS: PLATELET 43 x1000/uL (130-400)
[2021-06-02] MEDS: NEBIVOLOL HCL 5 MG TABLET PO SCH ×2 (09:00→20:47)
[2021-06-02] MEDS: MIDODRINE HCL 5MG TABLET PO SCH ×3 (09:10→17:32)
[2021-06-02] MEDS: METHYLPREDNISOLONE SOD SUCC 40 MG/ML VIAL IV SCH (09:10)
[2021-06-02] MEDS: PANTOPRAZOLE SODIUM 40 MG/VIAL IV SCH (09:10)
[2021-06-02 09:51] LABS: NUCLEATED RED BLOOD CELLS 1 /100 WBC
[2021-06-02 09:52] LABS: PLATELET ESTIMATE MARKEDLY DECREASED
[2021-06-02] MEDS: LEVOFLOXACIN 250MG PREMIX 50 ML IV SCH (16:06)
[2021-06-03] VITALS: BP 122/77
[2021-06-03] MEDS: DILTIAZEM HCL 30MG TABLET PO SCH ×5 (01:19→22:26)
[2021-06-03] MEDS: IPRATROPIUM/ALBUTEROL 0.5-3(2.5)MG/3ML NEB NEB SCH ×4 (01:44→20:26)
[2021-06-03] MEDS: LACTULOSE 20G/30ML UDC PO SCH ×3 (06:26→22:24)
[2021-06-03] MEDS: BLOOD SUGAR DIAGNOSTIC STRIP TEST SCH ×6 (06:26→21:00)
[2021-06-03 07:58] VITALS: BP 96/59
[2021-06-03] MEDS: NEBIVOLOL HCL 5 MG TABLET PO SCH ×2 (09:00→22:25)
[2021-06-03] MEDS: INSULIN LISPRO 100 UNITS/ML SUBCUT SCH ×4 (09:22→21:00)
[2021-06-03] MEDS: METHYLPREDNISOLONE SOD SUCC 40 MG/ML VIAL IV SCH (09:23)
[2021-06-03] MEDS: MIDODRINE HCL 5MG TABLET PO SCH ×3 (09:23→17:36)
[2021-06-03] MEDS: PANTOPRAZOLE SODIUM 40 MG/VIAL IV SCH (09:23)
[2021-06-03 11:49] VITALS: BP 116/63
[2021-06-03] MEDS ORDERED: INSULIN GLARGINE UD 100 UNITS/ML SYR SUBCUT NR (14:00)
[2021-06-03] MEDS: LEVOFLOXACIN 250MG PREMIX 50 ML IV SCH (15:32)
[2021-06-03 15:46] VITALS: BP 122/64
[2021-06-03 20:00] VITALS: BP 123/89
[2021-06-03] MEDS: EPOETIN ALFA-EPBX 4,000 UNIT/ML VIAL SUBCUT SCH (21:00)
[2021-06-04] VITALS: BP 130/68
[2021-06-04] MEDS: IPRATROPIUM/ALBUTEROL 0.5-3(2.5)MG/3ML NEB NEB SCH ×3 (02:17→14:24)
[2021-06-04 04:00] VITALS: BP 123/77
[2021-06-04] MEDS: LACTULOSE 20G/30ML UDC PO SCH ×2 (05:21→13:14)
[2021-06-04] MEDS: DILTIAZEM HCL 30MG TABLET PO SCH ×3 (05:21→17:22)
[2021-06-04] MEDS: BLOOD SUGAR DIAGNOSTIC STRIP TEST SCH ×4 (05:21→21:00)
[2021-06-04 08:00] VITALS: BP 111/58
[2021-06-04] MEDS: INSULIN LISPRO 100 UNITS/ML SUBCUT SCH ×4 (09:00→21:00)
[2021-06-04] MEDS: MIDODRINE HCL 5MG TABLET PO SCH ×3 (09:00→17:00)
[2021-06-04] MEDS: PANTOPRAZOLE SODIUM 40 MG/VIAL IV SCH (09:00)
[2021-06-04] MEDS: METHYLPREDNISOLONE SOD SUCC 40 MG/ML VIAL IV SCH (09:00)
[2021-06-04] MEDS: NEBIVOLOL HCL 5 MG TABLET PO SCH ×2 (09:00→20:43)
[2021-06-04] MEDS ORDERED: INSULIN GLARGINE UD 100 UNITS/ML SYR SUBCUT SCH (10:00)
[2021-06-04 12:00] VITALS: BP 92/48
[2021-06-04 16:00] VITALS: BP 120/53
[2021-06-04 20:00] VITALS: BP 121/88
[2021-06-04] MEDS: ONDANSETRON HCL 4MG/2ML INJ IV PRN (20:37)
== END 2021-06-04 21:00 | DRG 720 ==
LOC: ER 09:40 → MICUSO 12:11 → EDBEDREQSVC 12:15 → EDBEDREQ 12:15 → EDBEDREQSVC 13:17 → MICUNO 05-25 10:47 → 5WST 06-02 11:35
PROVIDERS: ADMIT Internal Medicine; ATTEND Internal Medicine
PROC: 05HY33Z Insertion of Infusion Device into Upper Vein, Percutaneous Approach (ICD-10-PCS; 2021-05-23)
PROC: B54MZZA Ultrasonography of Right Upper Extremity Veins, Guidance (ICD-10-PCS; 2021-05-23)
PROC: 5A1D70Z Performance of Urinary Filtration, Intermittent, Less than 6 Hours Per Day (ICD-10-PCS; 2021-05-23)
PROC: 5A09357 Assistance with Respiratory Ventilation, Less than 24 Consecutive Hours, Continuous Positive Airway Pressure (ICD-10-PCS; 2021-05-23)
PROC: 0W993ZZ Drainage of Right Pleural Cavity, Percutaneous Approach (ICD-10-PCS; principal; 2021-05-24)
PROC: 5A09357 Assistance with Respiratory Ventilation, Less than 24 Consecutive Hours, Continuous Positive Airway Pressure (ICD-10-PCS; 2021-05-24)
PROC: 5A1955Z Respiratory Ventilation, Greater than 96 Consecutive Hours (ICD-10-PCS; 2021-05-25)
PROC: 0BH17EZ Insertion of Endotracheal Airway into Trachea, Via Natural or Artificial Opening (ICD-10-PCS; 2021-05-25)
PROC: 5A1D70Z Performance of Urinary Filtration, Intermittent, Less than 6 Hours Per Day (ICD-10-PCS; 2021-05-25)
PROC: 5A1D70Z Performance of Urinary Filtration, Intermittent, Less than 6 Hours Per Day (ICD-10-PCS; 2021-05-27)
PROC: 5A1D70Z Performance of Urinary Filtration, Intermittent, Less than 6 Hours Per Day (ICD-10-PCS; 2021-05-29)
PROC: 5A1D70Z Performance of Urinary Filtration, Intermittent, Less than 6 Hours Per Day (ICD-10-PCS; 2021-06-04)
DX: A41.9 Sepsis, unspecified organism (principal); J96.21 Acute and chronic respiratory failure with hypoxia; R65.21 Severe sepsis with septic shock; J69.0 Pneumonitis due to inhalation of food and vomit; D61.818 Other pancytopenia; E43 Unspecified severe protein-calorie malnutrition; I50.33 Acute on chronic diastolic (congestive) heart failure; A04.72 Enterocolitis due to Clostridium difficile, not specified as recurrent; G93.40 Encephalopathy, unspecified; N18.6 End stage renal disease; D64.9 Anemia, unspecified; N25.81 Secondary hyperparathyroidism of renal origin; N39.0 Urinary tract infection, site not specified; E87.5 Hyperkalemia; K74.60 Unspecified cirrhosis of liver; E11.22 Type 2 diabetes mellitus with diabetic chronic kidney disease; I13.2 Hypertensive heart and chronic kidney disease with heart failure and with stage 5 chronic kidney disease, or end stage renal disease; Z20.822 Contact with and (suspected) exposure to COVID-19; K52.9 Noninfective gastroenteritis and colitis, unspecified; I49.3 Ventricular premature depolarization; I48.92 Unspecified atrial flutter; J44.9 Chronic obstructive pulmonary disease, unspecified; I31.3 Pericardial effusion (noninflammatory); I27.20 Pulmonary hypertension, unspecified; E87.1 Hypo-osmolality and hyponatremia; E87.6 Hypokalemia; E87.4 Mixed disorder of acid-base balance; E78.5 Hyperlipidemia, unspecified; I36.1 Nonrheumatic tricuspid (valve) insufficiency; C90.00 Multiple myeloma not having achieved remission; I48.91 Unspecified atrial fibrillation; D69.6 Thrombocytopenia, unspecified; Z99.2 Dependence on renal dialysis; Z99.81 Dependence on supplemental oxygen; Z85.038 Personal history of other malignant neoplasm of large intestine; Z83.3 Family history of diabetes mellitus; Z82.49 Family history of ischemic heart disease and other diseases of the circulatory system; Z92.21 Personal history of antineoplastic chemotherapy; Z79.899 Other long term (current) drug therapy; Z79.82 Long term (current) use of aspirin
CPT/HCPCS: 32555; 36415; 36600; 70551; 71045; 71250; 74176; 76705; 76937; 80048; 80053; 80162; 80202; 81003; 82040; 82140; 82270; 82375; 82550; 82553; 82805; 82962; 83605; 83615; 83735; 83880; 84100; 84145; 84443; 84478; 84484; 85025; 86705; 86706; 86709; 86803; 86850; 86900; 87015; 87045; 87070; 87340; 87426; 87427; 87449; 87493; 87635; 87804; 89055; 92610; 93005; 93308; 93970; 94003; 94640; 94660; 97163; 99291; A6261; C1725; C9113; J0885; J1160; J1200; J1815; J1956; J2250; J2270; J2370; J2405; J2543; J2920; J3010; J3370; J3490; J7042; J7050; J7060; P9041; A4315